=== PATIENT | female | born 1975 | race Caucasian/White ===

== ENCOUNTER 2020-09-06 14:23 | Outpatient (CLI) | payer OTHER, SELFPAY ==
--- NOTE | ~2020-09-06 | MM_ITS ---
EXAMINATION: MM screening desmond BI w kristopher HISTORY: Screening TECHNIQUE: Craniocaudal and mediolateral oblique 3-D tomosynthesis images were obtained and synthetic 2-D images were generated. CAD analysis was submitted and interpreted. COMPARISON: 07/15/2019 BREAST PARENCHYMAL COMPOSITION: There are scattered areas of fibroglandular density. FINDINGS: There is no evidence of suspicious mass, calcification, or architectural distortion to sugg est malignancy in either breast. There has been no suspicious interval change. IMPRESSION: 1. No mammographic evidence of malignancy. 2. Recommend routine screening mammography in one year. BI-RADS Category 1: Negative Reviewed, dictated and finalized at location A.
== END 2020-09-06 14:24 | disposition home or self-care (01) ==
LOC: ANHIMG 14:29
PROVIDERS: PCP Family Medicine; Visit Provider Family Medicine
DX: Z12.31 Encounter for screening mammogram for malignant neoplasm of breast (principal)
CPT/HCPCS: 77063; 77067

== ENCOUNTER 2021-07-01 13:00 | Emergency (ER) | payer OTHER, SELFPAY ==
--- NOTE | ~2021-07-01 | XR_ITS ---
XR knee RT 3V 07/01/2021 14:01 Indication: Right knee pain after fall Procedure: 3 views right knee Comparison: No prior studies for comparison. Findings: There is osteoarthritis of the right knee, most advanced in the patellofemoral compartment. No acute fracture or traumatic malalignment. No significant joint effusion. Impression: 1: No acute fracture. 2: Moderate osteoarthritis of the right knee. Reviewed, dictated and finalized at location A. Impression: 1: No acute fracture. 2: Moderate osteoarthritis of the right knee.
[2021-07-01 13:47] VITALS: BP 109/94; PULSE 104; RESP 18; TEMP 37.1; O2SAT 100
--- NOTE | 2021-07-01 16:08 | ED.LOWEXIN ---
HPI - Extremity Injury (Lower) General Chief Complaint: Extremity Injury, Lower Stated Complaint: fall, right knee pain Time Seen by Provider: 07/01/21 15:36 Source: patient Mode of arrival: ambulatory Limitations: no limitations History of Present Illness HPI Narrative: This is a 45 year old female that presents to the ER for right knee pain after an injury yesterday. Reports she slipped while getting into the pool yesterday. Reports twisting the knee and has had pain since. Pain is worse with weight bearing and certain movement. She denies other injuries, decreased ROM or numbness. Review of Systems Review of Systems: CONSTITUTIONAL: Denies fever MUSCULOSKELETAL: Reports joint pain, and myalgia. NEUROLOGIC: Denies numbness, or weakness. All systems reviewed & are unremarkable except as noted in HPI and below PMFSH Family History Family History (Updated 06/21/16 @ 23:19 by DOCTOR UNKNOWN) Father Family history of diabetes mellitus in first degree relative Mother Family history of diabetes mellitus in first degree relative Hypertension, Onset Age: 52 Social History Social History Smoking status: Former smoker Smoking end date: 11/24/05 Alcohol intake: current Gender identity (if verbalized by the patient): Female Exam Narrative: GENERAL: Well-appearing, obese, and in no acute distress. HEAD: Normocephalic, atraumatic. EYES: EOMI. EXTREMITIES: Normal range of motion. No edema or obvious deformity. Normal DP pulses. Normal sensation SKIN: Warm, dry, no rash. NEURO: No focal deficits. Alert and oriented x3. PSYCH: Normal mood and affect Course Vital Signs Vital signs: Vital Signs Temperature 98.8 F 07/01/21 13:47 Pulse Rate 104 H 07/01/21 13:47 Respiratory Rate 99 H 07/01/21 13:47 Blood Pressure 109/94 H 07/01/21 13:47 Pulse Oximetry 100 07/01/21 13:47 Temperature 98.8 F 07/01/21 13:47 Pulse Rate 104 H 07/01/21 13:47 Respiratory Rate 99 H 07/01/21 13:47 Blood Pressure 109/94 H 07/01/21 13:47 Pulse Oximetry 100 07/01/21 13:47 MDM - Extremity Injury (Lower) MDM Narrative Medical decision making narrative: Patient presents emergency department for right knee pain after an injury yesterday. Right knee x-rays without acute osseous abnormalities. Patient placed in a knee immobilizer and given crutches. Instructed on care of the sprain. She is to follow-up with orthopedics. She was given warnings to return to the ER Imaging Data Radiologist's impression: ITS Impressions Knee X-Ray 07/01/21 14:07 Impression: 1: No acute fracture. 2: Moderate osteoarthritis of the right knee. Critical Care Time Critical Care Time Critical Care Time: No Discharge Plan Discharge Clinical Impression: Acute internal derangement of knee Qualifiers: Laterality: right Qualified Code(s): M23.91 - Unspecified internal derangement of right knee Patient Disposition: Home, Self-Care Condition: Stable Instructions: Knee Sprain (ED) Additional Instructions: Return to the emergency department if you experience fever, redness and swelling of your leg, numbness, or any other symptoms that are concerning to you Wear knee immobilizer and use crutches. No weight on the affected leg. Ice and elevate extremity. Pain medication as needed and directed. Follow up with orthopedics for further care. Follow-up/Referrals: Blake Quinteros MD [Primary Care Provider] - None Antonio Hinojosa MD [Physician] - 1 Week
== END 2021-07-01 16:55 | disposition home or self-care (01) ==
PROVIDERS: Emergency Provider Emergency Medicine; PCP Family Medicine
DX: M23.91 Unspecified internal derangement of right knee (principal)
CPT/HCPCS: 73562; 99283

== ENCOUNTER 2022-03-21 16:57 | Outpatient (CLI) | payer OTHER, SELFPAY ==
[2022-03-21 18:37] LABS: Alanine Aminotransferase 16 U/L (4-35); Albumin Level 4.4 g/dL (3.5-5.1); Alkaline Phosphatase 88 U/L (38-126); Anion Gap 8 mmol/L (8-16); Aspartate Amino Transferase 28 U/L (14-36); Bilirubin,Total 0.2 mg/dL (0.2-1.3); Blood Urea Nitrogen 17 mg/dL (7-17); Carbon Dioxide 28 mmol/L (22-30); Chloride 104 mmol/L (98-107); Estimated Glomerular Filt Rate > 60; Glucose 101 mg/dL (65-110); Potassium 4.2 mmol/L (3.4-5.0); Sodium 140 mmol/L (137-145)
== END 2022-03-21 16:58 | disposition home or self-care (01) ==
LOC: ANHLAB 17:01
PROVIDERS: PCP Family Medicine; Visit Provider Podiatrist Foot & Ankle Surgery
DX: B07.9 Viral wart, unspecified (principal)
CPT/HCPCS: 36415; 80053

== ENCOUNTER 2022-12-23 01:26 | Day surgery (SDC) | payer OTHER, SELFPAY ==
[2022-12-09 10:46] VITALS: BMI 41.4
[2022-12-23 10:26] VITALS: BP 144/89; PULSE 90; RESP 18; TEMP 36.6; O2SAT 100; BMI 41.9
[2022-12-23] MEDS: LACTATED RINGERS 1,000 ML 150 ML IV CONT (10:35)
--- NOTE | 2022-12-23 10:49 | SUR.PREOP ---
Patient states she has not had a period in over [address] Izquierdo. Urine test d/nelson.
--- NOTE | 2022-12-23 10:52 | PM.HPGS ---
History of Present Illness History of Present Illness Consent: Risks, benefits, and alternatives have been discussed and questions answered. Patient agrees to proceed with procedure. Chief complaint: abdominal pain, rectal bleeding Narrative: Melania John is a 47 year old female here for first screening colonoscopy, also had cramping abdominal discomfort but resolved Review of Systems Constitutional: Constitutional: Denies headache(s) and Denies weakness Eyes: Eyes: Denies blurry vision ENT: Reports Normal hearing present, Denies headache(s) and Denies neck pain Cardiovascular: Cardiovascular: Denies chest pain and Denies dyspnea Respiratory: Respiratory: Denies dyspnea Gastrointestinal: Gastrointestinal: Reports no additional gastrointestinal complaints Genitourinary: Genitourinary: Denies dysuria Musculoskeletal: Musculoskeletal: Denies neck pain Integumentary/Breasts: Skin/Breast: Denies dry skin Neurologic: Reports Normal hearing present, Denies headache(s) and Denies weakness Psychiatric: Psychiatric: Denies anxiety Endocrine: Endocrine: Denies change in body appearance Hematologic/Lymphatic: Hematologic/Lymphatic: Denies easy bleeding Allergic/Immunologic: Allergic/Immunologic: Denies urticaria [facility] Past Medical History Medical History (Updated 12/23/22 @ 10:53 by John Feliciano MD) Abdominal cramping Colon cancer screening Osteoarthritis of right knee Surgical History Surgical History (Updated 11/12/22 @ 15:13 by Jackson Weiss PA-C) History of gastric surgery Family History Family History Father Family history of diabetes mellitus in first degree relative Mother Family history of diabetes mellitus in first degree relative Hypertension, Onset Age: 52 Social History Social History Smoking status: Former smoker Tobacco type: cigarettes Smoking end date: 11/24/05 Alcohol intake: current Alcohol use details: occasionally Substance use: never Substance use type: does not use Living arrangements: alone Occupation/Education: occupation 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 Gender identity (if verbalized by the patient): Female Spiritual care concerns: No Meds Home Medications and Allergies Home Medications Medication Instructions Recorded Confirmed Type omeprazole 20 mg capsule,delayed 20 mg PO DAILY #30 caps 11/12/22 12/23/22 Rx release Allergies Allergy/AdvReac Type Severity Reaction Status Date / Time No Known Allergies Allergy Verified 12/23/22 10:24 Vital Signs Vital Signs - 24 hr 12/23/22 10:26 Temperature 97.9 F Pulse Rate 90 Respiratory Rate 18 Blood Pressure 144/89 H Pulse Oximetry 100 Oxygen Delivery Room Air Exam Const: General: comfortable and no acute distress HENMT: Face/Nose/Sinus: Normal nares present Eyes: General: appearance normal, both eyes and all related structures Neck: Neck: no JVD Resp: Auscultation: clear to auscultation bilaterally Cardio: Rate: regular rate Rhythm: regular rhythm GI: Inspection: non-distended GI Palp: Yes Soft to palpation Skin: General skin exam: normal color Neuro: General: gait normal Speech: normal speech Extrem: General: normal to inspection Psych: Mental Status: mental status grossly normal Assessment and Plan Assessment and plan (1) Colon cancer screening: Code(s): Z12.11 - Encounter for screening for malignant neoplasm of colon Status: Acute Assessment and Plan: colonoscopy (2) Abdominal cramping: Code(s): R10.9 - Unspecified abdominal pain Status: Acute Assessment and Plan: resolved
[2022-12-23 11:11] VITALS: BP 115/70; PULSE 94; RESP 23; O2SAT 95
[2022-12-23 11:21] VITALS: BP 110/90; PULSE 90; RESP 20; O2SAT 99
[2022-12-23 11:31] VITALS: BP 120/94; PULSE 81; RESP 22; O2SAT 98
== END 2022-12-23 11:40 | disposition home or self-care (01) ==
PROVIDERS: PCP Physician Assistant; Visit Provider Internal Medicine Gastroenterology
PROC: 0DJD8ZZ Inspection of Lower Intestinal Tract, Via Natural or Artificial Opening Endoscopic (ICD-10-PCS; CPT 45378; principal; 2022-12-23 11:30)
DX: Z12.11 Encounter for screening for malignant neoplasm of colon (principal); K64.8 Other hemorrhoids; R10.9 Unspecified abdominal pain; Z87.891 Personal history of nicotine dependence
CPT/HCPCS: 45378; 36415; 74018; 80053; 80061; 81001; 84443; 85027; J2704; J7120

== ENCOUNTER 2022-12-23 07:40 | Outpatient (CLI) | payer OTHER, SELFPAY ==
--- NOTE | ~2022-12-23 | XR_ITS ---
EXAMINATION: XR abdomen/kub 1V INDICATION: Unspecified abdominal pain, vomiting TECHNIQUE: Supine views of the abdomen were obtained on 2 radiographs. COMPARISON: None FINDINGS: Surgical changes of the left upper quadrant likely relate to weight loss surgery. The bowel gas pattern is unremarkable. There are no dilated loops of bowel. Phleboliths are noted in the pelvi s. Ovoid densities of the right pelvis have the appearance of ingested medications. There is mild ost eoarthritis of the hips. The visualized lung bases are clear. IMPRESSION: 1. No radiographic correlate for the patient's symptoms. Reviewed, dictated and finalized at location B. ENTICE PAINTER HAND
[2022-12-23 08:07] LABS: Hematocrit 43.8 % (37.0-47.0); Hemoglobin 14.6 g/dL (12.0-15.0); Mean Corpuscular HGB Conc 33.3 g/dl (32-36); Mean Corpuscular Hemoglobin 28.4 pg (26-34); Mean Corpuscular Volume 85.2 fl (80-100); Mean Platelet Volume 9.8 fl (7.4-10.4); Platelet Count Result 311 k/mm3 (150-375); Red Blood Count 5.14 M/mm3 (4.2-5.4); Red Cell Distribution Width 12.6 % (11.5-14.5); White Blood Count 7.7 K/mm3 (4.5-10.0)
[2022-12-23 08:09] LABS: Appearance Urine Clear (Clear); Bilirubin Urine 1+ (Negative); Blood Urine Negative (Negative); Color Urine Yellow (Yellow); Glucose Urine UA Negative (Negative); Ketones Urine Negative (Negative); Leukocyte Esterase Ur Negative LEU/UL (NEGATIVE); Nitrate Urine Negative (Negative); Protein Urine 1+ mg/dL (Negative); Specific Grav Ur 1.025 (1.001-1.035); Urobilinogen Urine 0.2 mg/dL (<2.0); pH Urine 5.5 (5.0-9.0)
[2022-12-23 08:11] LABS: Add Urine Microscopic? YES; Bacteria Urine Trace /hpf; Hyaline Casts Urine 30-49 /lpf; Mucus Urine Few /lpf; RBC Urine 0-2 /hpf (0-2); Squamous Epithelial Cell Urine Occasional /hpf (Few)
[2022-12-23 08:20] LABS: Alanine Aminotransferase 20 U/L (6-35); Albumin Level 4.2 g/dL (3.5-5.1); Alkaline Phosphatase 80 U/L (38-126); Anion Gap 6 mmol/L (8-16); Aspartate Amino Transferase 23 U/L (14-36); Bilirubin,Total 0.7 mg/dL (0.2-1.3); Blood Urea Nitrogen 8 mg/dL (7-17); Calcium 9.3 mg/dL (8.4-10.2); Carbon Dioxide 28 mmol/L (22-30); Chloride 104 mmol/L (98-107); Cholesterol 228 mg/dL (0-200); Estimated Glomerular Filt Rate > 60; Glucose 104 mg/dL (65-110); HDL Direct 50 mg/dL; Potassium 3.9 mmol/L (3.4-5.0); Sodium 138 mmol/L (137-145); Triglycerides 137 mg/dL (<150)
[2022-12-23 08:31] LABS: LDL Cholesterol Direct 129 mg/dL
== END 2022-12-23 07:41 | disposition home or self-care (01) ==
PROVIDERS: PCP Physician Assistant; Visit Provider Physician Assistant
DX: Z00.00 Encounter for general adult medical examination without abnormal findings (principal); R10.32 Left lower quadrant pain; K21.9 Gastro-esophageal reflux disease without esophagitis; Z98.84 Bariatric surgery status
CPT/HCPCS: 36415; 74018; 80053; 80061; 81001; 84443; 85027

== ENCOUNTER 2023-02-26 11:59 | Outpatient (CLI) | payer OTHER, SELFPAY ==
--- NOTE | ~2023-02-26 | XR_ITS ---
EXAMINATION: XR abdomen/kub 1V INDICATION: Abnormal findings on diagnostic imaging, left lower quadrant pain TECHNIQUE: Supine views of the abdomen were obtained on 2 radiographs. COMPARISON: 12/23/2022 FINDINGS: Phleboliths are noted in the pelvis. The bowel gas pattern is normal. The visualized lung b ases are clear. Surgical changes are noted in the left upper quadrant. IMPRESSION: 1. No radiographic correlate for the patient's symptoms. Reviewed, dictated and finalized at location B.
== END 2023-02-26 12:00 | disposition home or self-care (01) ==
PROVIDERS: PCP Family Medicine; Visit Provider Physician Assistant
DX: R93.5 Abnormal findings on diagnostic imaging of other abdominal regions, including retroperitoneum (principal)
CPT/HCPCS: 74018

== ENCOUNTER 2023-05-08 08:05 | Emergency (ER) | payer OTHER, SELFPAY ==
--- NOTE | 2023-05-08 08:09 | ED.URI ---
HPI - URI/Sore Throat General Chief Complaint: Upper Respiratory Infection Stated Complaint: Chest Congestion Time Seen by Provider: 05/08/23 08:11 Source: patient, RN notes reviewed and old records reviewed Mode of arrival: ambulatory Limitations: no limitations History of Present Illness HPI Narrative: 47-year-old female presents to the [facility] complaints of a runny nose and sinus congestion that started on Friday, 2 days ago. Patient states that she thought it was originally allergies. Woke up this morning with a cough and chest congestion. No treatment prior to arrival. Reports this morning she had a fever of 100. No treatment for fever. History of acid reflux as well as a gastric sleeve Onset (ago): day(s) (2) Related Data Home Medications Medication Instructions Recorded Confirmed famotidine 20 mg tablet (Pepcid) 20 mg PO DAILY 03/17/23 03/17/23 Allergies Allergy/AdvReac Type Severity Reaction Status Date / Time No Known Allergies Allergy Verified 03/17/23 15:54 Review of Systems Review of Systems: All systems reviewed & are unremarkable except as noted in HPI and below Constitutional: Constitutional: Reports no additional constitutional complaints Eyes: Eyes: Reports no additional eye complaints ENT: Reports as per HPI and Reports nasal discharge Cardiovascular: Cardiovascular: Reports no additional cardiovascular complaints, Denies chest pain and Denies dyspnea Respiratory: Respiratory: Reports as per HPI, Reports chest congestion, Reports cough and Denies dyspnea Gastrointestinal: Gastrointestinal: Reports no additional gastrointestinal complaints, Denies abdominal pain, Denies nausea and Denies vomiting Musculoskeletal: Musculoskeletal: Reports no additional musculoskeletal complaints Integumentary/Breasts: Skin/Breast: Reports system reviewed and no additional complaints, except as docu Neurologic: Reports system reviewed and no additional complaints, except as documented Psychiatric: Psychiatric: Reports no additional psychiatric complaints Allergic/Immunologic: Allergic/Immunologic: Reports no additional allergic/immunologic complaints [facility] Past Medical History Medical History Abdominal cramping Colon cancer screening Osteoarthritis of right knee Surgical History Surgical History History of gastric surgery History of tubal ligation Family History Family History Father Family history of diabetes mellitus in first degree relative Mother Family history of diabetes mellitus in first degree relative Hypertension, Onset Age: 52 Social History Social History Smoking status: Never smoker Smoking end date: 11/24/05 Alcohol intake: current Alcohol use details: occasionally Substance use: never Substance use type: does not use Living arrangements: with family Occupation/Education: occupation 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 There is no relevant family history pertinent to the patient complaint. Exam Const: General: cooperative, healthy appearing, comfortable, no acute distress, well developed, alert and well nourished Nutritional Appearance: well nourished and obese Orientation/consciousness: patient oriented x3 Limitations: no limitations HENMT: Head: normal to inspection Ears: hearing grossly normal bilaterally, external ears normal, TM's normal bilaterally and EAC's normal Face/Nose/Sinus: Normal external nose present, Nor
[2023-05-08 08:12] VITALS: BP 154/86; PULSE 113; RESP 18; TEMP 36.2; O2SAT 99
== END 2023-05-08 08:35 | disposition home or self-care (01) ==
PROVIDERS: Emergency Provider Nurse Practitioner; PCP Physician Assistant
DX: J40 Bronchitis, not specified as acute or chronic (principal); J01.40 Acute pansinusitis, unspecified; M17.11 Unilateral primary osteoarthritis, right knee; Z87.891 Personal history of nicotine dependence
CPT/HCPCS: 99213; G0463

== ENCOUNTER 2023-06-26 07:04 | Outpatient (CLI) | payer OTHER, SELFPAY ==
--- NOTE | ~2023-06-26 | MM_ITS ---
EXAMINATION: MM screening desmond BI w kristopher HISTORY: Screening mammogram TECHNIQUE: Craniocaudal and mediolateral oblique 3-D tomosynthesis images were obtained and synthetic 2-D images were generated. CAD analysis was submitted and interpreted. COMPARISON: 09/06/2020, 07/15/2019 bilateral screening mammogram examinations BREAST PARENCHYMAL COMPOSITION: There are scattered areas of fibroglandular density. FINDINGS: There is no evidence of suspicious mass, calcification, or architectural distortion to sugg est malignancy in either breast. There has been no suspicious interval change. IMPRESSION: 1. No mammographic evidence of malignancy. 2. Recommend routine screening mammography in one year. BI-RADS Category 1: Negative Reviewed, dictated and finalized at location A.
== END 2023-06-26 07:05 | disposition home or self-care (01) ==
LOC: ANHIMG 07:05
PROVIDERS: PCP Physician Assistant; Visit Provider Physician Assistant
DX: Z12.31 Encounter for screening mammogram for malignant neoplasm of breast (principal)
CPT/HCPCS: 77063; 77067

== ENCOUNTER 2024-06-28 09:01 | Outpatient (CLI) | payer OTHER, SELFPAY ==
--- NOTE | ~2024-06-28 | MM_ITS ---
EXAMINATION: MM screening desmond BI w kristopher HISTORY: Screening TECHNIQUE: Craniocaudal and mediolateral oblique 3-D tomosynthesis images were obtained and synthetic 2-D images were generated. CAD analysis was submitted and interpreted. COMPARISON: Comparison to multiple prior studies sequentially, with oldest reviewed study dated 07/15. BREAST PARENCHYMAL COMPOSITION: Not dense: There are scattered areas of fibroglandular density. FINDINGS: There is no evidence of suspicious mass, calcification, or architectural distortion to sugg est malignancy in either breast. There has been no suspicious interval change. IMPRESSION: 1. No mammographic evidence of malignancy. 2. Recommend routine screening mammography in one year. BI-RADS Category 1: Negative Reviewed, dictated and finalized at location B.
== END 2024-06-28 09:02 | disposition home or self-care (01) ==
LOC: ANHIMG 09:02
PROVIDERS: PCP Physician Assistant; Visit Provider Obstetrics & Gynecology
DX: Z12.31 Encounter for screening mammogram for malignant neoplasm of breast (principal)
CPT/HCPCS: 77063; 77067

== ENCOUNTER 2024-06-29 09:38 | Emergency (ER) | payer OTHER, SELFPAY ==
[2024-06-29 10:00] VITALS: BP 127/68; PULSE 89; RESP 18; TEMP 36.7; O2SAT 99
--- NOTE | 2024-06-29 11:21 | ED.SKABFB ---
HPI - Skin/Abscess/Foreign Bdy General Chief complaint: Skin/Abscess/Foreign Body Stated complaint: belly rash Time Seen by Provider: 06/29/24 11:00 Source: patient, RN notes reviewed and old records reviewed Mode of arrival: ambulatory Limitations: no limitations History of Present Illness HPI narrative: 48 year old female who presents to [facility] care with complaints of rash to her abdomen around naval area around to her right side and also some areas on left side region also along waist band, no rash elsewhere noted. for the past month. Patient reports that rash is itchy and she has tried numerous OTC lotions such as Eucerin, hydrocortisone. Lotrimin and has taken oral Benadryl for the itching. Patient reports no fevers chills or body aches, denies any known exposure to poisonous plants or any change in skin care products or any soaps or laundry product. MD complaint: rash Onset (ago): month(s) (1 increased itching past 2 days) Severity: moderate Treatments prior to arrival: OTC topical medication, Benadryl and other (hydrocortisone ointment) Related Data Home Medications Medication Instructions Recorded Confirmed famotidine 20 mg tablet (Pepcid) 20 mg PO DAILY 06/29/24 06/29/24 Allergies Allergy/AdvReac Type Severity Reaction Status Date / Time No Known Allergies Allergy Verified 06/29/24 09:57 Review of Systems Review of Systems: CONSTITUTIONAL: Denies fever, chills, or sweats. CARDIOVASCULAR: Denies chest pain, palpitations, or edema. RESPIRATORY: Denies cough or dyspnea. SKIN: Reports itchy rash at waistline around to right side and some to left side also for one month duration MUSCULOSKELETAL: Denies joint pain or myalgia. NEUROLOGIC: Denies headache, numbness, or weakness. All systems reviewed & are unremarkable except as noted in HPI and below PMFSH Past Medical History Medical History Abdominal cramping Colon cancer screening Osteoarthritis of right knee Surgical History Surgical History History of gastric surgery History of tubal ligation Family History Family History Father Family history of diabetes mellitus in first degree relative Mother Family history of diabetes mellitus in first degree relative Hypertension, Onset Age: 52 Social History Social History Smoking status: Never smoker Smoking end date: 11/24/05 Alcohol intake: current Alcohol use details: occasionally Substance use: never Substance use type: does not use Do You Feel Safe in your Home?: Yes Lack of Transportation: No Lack of Food: Never True Current Housing: I Have Housing Concerned About Future Housing: No Difficulty Paying Gas/Electric Bills: No Difficulty Paying for Meds: No Currently Unemployed: No Education: Master's Degree or Higher Difficulty w/ Childcare or Family Care: No Living arrangements: with family Occupation/Education: occupation 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 There is no relevant family history pertinent to the presenting complaint Exam Narrative: GENERAL: Well-appearing, well-nourished, obese and in no acute distress. HEAD: Normocephalic, atraumatic. EYES: PERRLA, conjunctivae clear, and EOMI. ENT: Mucous membranes moist. Oropharynx without edema, erythema or lesions. NECK: Supple. No lymphadenopathy CHEST: Clear to auscultation. No respiratory distress.SAO2 99% on room air HEART: Regular rate and rhythm. SKIN: Warm, dry.? Patche
== END 2024-06-29 11:40 | disposition home or self-care (01) ==
PROVIDERS: Emergency Provider Registered Nurse; PCP Family Medicine
DX: L25.9 Unspecified contact dermatitis, unspecified cause (principal); Z87.891 Personal history of nicotine dependence; M17.11 Unilateral primary osteoarthritis, right knee
CPT/HCPCS: 99213; G0463

== ENCOUNTER 2025-08-18 08:50 | Outpatient (CLI) | payer OTHER, SELFPAY ==
--- NOTE | ~2025-08-18 | MM_ITS ---
EXAMINATION: MM screening desmond BI w kristopher HISTORY: Screening TECHNIQUE: Craniocaudal and mediolateral oblique 3-D tomosynthesis images were obtained and synthetic 2-D images were generated. CAD analysis was submitted and interpreted. COMPARISON: 06/26/2023 BREAST PARENCHYMAL COMPOSITION: Not Dense: The breasts are almost entirely fatty. FINDINGS: There is no evidence of suspicious mass, calcification, or architectural distortion to suggest malignancy. There has been no suspicious interval change. IMPRESSION: 1. No mammographic evidence of malignancy. Recommend routine screening mammography in one year. BI-RADS Category 2: Benign finding(s) Reviewed, dictated and finalized at location Q. IMPRESSION: 1. No mammographic evidence of malignancy. Recommend routine screening mammogra phy in one year. BI-RADS Category 2: Benign finding(s)
== END 2025-08-18 08:51 | disposition home or self-care (01) ==
LOC: ANHFOHIMG 08:51
PROVIDERS: PCP Family Medicine; Visit Provider Obstetrics & Gynecology
DX: Z12.31 Encounter for screening mammogram for malignant neoplasm of breast (principal)
CPT/HCPCS: 77063; 77067

== ENCOUNTER 2025-11-09 06:49 | Outpatient (CLI) | payer OTHER, SELFPAY ==
--- NOTE | ~2025-11-09 | MR_ITS ---
EXAM/PROCEDURE: MR brain/brain stem wo/w con HISTORY: R51.9 - Headache, unspecified COMPARISON: None available. TECHNIQUE: Pre and postcontrast enhanced brain MRI performed. FINDINGS: Scattered punctate T2 weighted hyperintense white matter foci are present. Puentes-white signal pattern preserved. No acute ischemic event or effusion. Brainstem and cerebellum appear normal. Postcontrast series, no abnormal enhancing lesions or postcontrast enhancement pathology identified. Vascular flow voids patent at the skull base. Hippocampal regions are symmetric. Periorbital paranasal calvarial structures appear normal. Small mass formation noted incidentally posterior to the dens in the visualized portion of the cervical spine. IMPRESSION: 1. No mass, mass effect or hemorrhage. No acute ischemic event or abnormal enhancing lesions. 2. Minimal early chronic microvascular ischemic appearing white matter changes. 3. Degenerative appearing pannus formation adjacent to the dens in the visualized portions of the cervical spine. Reviewed, dictated and finalized at location A. [employer] UNIT FEEDER IMPRESSION: 1. No mass, mass effect or hemorrhage. No acute ischemic event or abnormal enha ncing lesions. 2. Minimal early chronic microvascular ischemic appearing white matter changes. 3. Degenerative appearing pannus formation adjacent to the dens in the visualiz ed portions of the cervical spine.
--- OUTSIDE RECORDS SUMMARY | 2025-11-09 06:55 | XMS_ITS | Clinical Summary ---
Author Organization [facility] [employer] [facility] lin Address [address] [place] [address] Care Team Providers Care Decision Support Manager Name Role Phone Unavailable Primary Care Provider Unavailabl e Social History Tobacco Use Types Packs/Day Years Used Date Smoking Tobacco: Never Assessed Comments Unknown Sex and Gender Information Value Date Recorded Sex Assigned at Not on file Legal Sex Female 3:06 PM EDT Gender Identity Not on file Sexual Orientation Not on file Plan of Treatment Not on file Medical Devices Not on file
== END 2025-11-09 06:50 | disposition home or self-care (01) ==
LOC: ANHIMG 06:53
PROVIDERS: PCP Family Medicine; Visit Provider Physician Assistant
DX: I67.82 Cerebral ischemia (principal); R90.82 White matter disease, unspecified
CPT/HCPCS: 70553; A9577

== ENCOUNTER 2025-11-11 14:49 | Outpatient (CLI) | payer OTHER, SELFPAY ==
--- OUTSIDE RECORDS SUMMARY | 2025-11-11 14:53 | XMS_ITS | Clinical Summary ---
Author Organization [facility] [employer] [facility] lin Address [address] [place] [address] Care Team Providers Care Kiln Burner Helper Name Role Phone Unavailable Primary Care Provider [...]
[2025-11-11 16:04] LABS: Hemoglobin A1C 5.6 % (<5.7)
== END 2025-11-11 14:50 | disposition home or self-care (01) ==
LOC: ANHLAB 14:51
PROVIDERS: PCP Family Medicine; Visit Provider Physician Assistant
DX: R73.01 Impaired fasting glucose (principal)
CPT/HCPCS: 36415; 83036